=== PATIENT | female | born 1980 | race American Indian/Alaskan Native ===

== ENCOUNTER 2024-08-12 15:04 | Emergency (ER) | payer BC, MEDICAID ==
[~2024-08-12] VITALS: Ht 170.2 cm; Wt 61.8 kg
[2024-08-12] MEDS ORDERED: HYDR-3686 PO (16:35)
[2024-08-12 16:46] VITALS: BP 118/74; PULSE 74; RESP 16; TEMP 98.1; O2SAT 97
== END 2024-08-12 16:47 | disposition home or self-care (01) ==
LOC: ER 15:05
DX: F32.A Depression, unspecified (principal); F41.9 Anxiety disorder, unspecified; Z88.0 Allergy status to penicillin
CPT/HCPCS: 99283; 99285